=== PATIENT | female | born 1975 | race Caucasian/White ===

== ENCOUNTER 2019-03-15 11:42 | Inpatient (IN) | payer OTHER ==
[~2019-03-15] VITALS: Ht 170.2 cm; Wt 63.5 kg
--- NOTE | 2019-03-15 12:09 | NUR ---
PTE REFIERE LLEVA VARIOS SANTIAGO CON DEBILIDAD CONGESTION DOLOR DE BOBBY Y VOMITOS REFIERE REACCION A MEDICAMENTO RECETADO POR DOVER MEDICO DE CABECERA SE MAVERICK S/V YSE UBIAC EN AREA DE OBSERVACION
--- NOTE | 2019-03-15 13:05 | NUR ---
PTE EVALUADA POR EL DR ROSS QUIEN ORDENA EL [place]. MS N ANA ROSA ORIENTA SOBRE EL MISMO, LO CUAL REFIERE ENTENDER, REALIZA PRUEBAS DE LABORATORIO Y ADMINISTRA MEDICAMENTOS KATIE ORDEN MEDICA Y SIGUIENDO MEDIDAS ASEPTICAS.
[2019-03-24] MEDS ORDERED: LOSARTAN POTASS50 MG PO (09:16)
[2019-03-24] MEDS ORDERED: ULTRAM50 MG PO (09:16)
[2019-03-24] MEDS ORDERED: GABAPENTIN300 M2 PO (09:16)
== END 2019-03-24 16:08 | disposition home or self-care (01) | DRG 202 ==
LOC: ER 11:42 → SEC-K 03-16 09:52 → MEDJ 03-16 09:52
PROVIDERS: ADMIT Internal Medicine
PROC: B030ZZZ Magnetic Resonance Imaging (MRI) of Brain (ICD-10-PCS; principal; 2019-03-16)
PROC: 8E0ZXY6 Isolation (ICD-10-PCS; 2019-03-16)
PROC: 3E0F7GC Introduction of Other Therapeutic Substance into Respiratory Tract, Via Natural or Artificial Opening (ICD-10-PCS; 2019-03-16)
PROC: 4A12X4Z Monitoring of Cardiac Electrical Activity, External Approach (ICD-10-PCS; 2019-03-17)
DX: J20.8 Acute bronchitis due to other specified organisms (principal); G70.01 Myasthenia gravis with (acute) exacerbation; J15.7 Pneumonia due to Mycoplasma pneumoniae; G61.0 Guillain-Barre syndrome; B96.0 Mycoplasma pneumoniae [M. pneumoniae] as the cause of diseases classified elsewhere; E87.8 Other disorders of electrolyte and fluid balance, not elsewhere classified; E86.0 Dehydration
CPT/HCPCS: 70553